=== PATIENT | male | born 1995 | race Two or more races ===

== ENCOUNTER 2016-07-16 15:51 | Emergency (ER) | payer OTHER ==
[~2016-07-16] VITALS: Ht 175.3 cm; Wt 73.5 kg
[2016-07-16 16:01] VITALS: BP 118/98
[2016-07-16] MEDS ORDERED: KETOROLAC TROMETH 60MG/2ML VIAL IM ONE (18:15)
== END 2016-07-16 18:52 | disposition home or self-care (01) ==
LOC: ER 16:04
DX: R51 Headache (principal); J45.909 Unspecified asthma, uncomplicated; Z90.89 Acquired absence of other organs; V49.59XA Passenger injured in collision with other motor vehicles in traffic accident, initial encounter; Y93.89 Activity, other specified; Y99.8 Other external cause status; Y92.488 Other paved roadways as the place of occurrence of the external cause
CPT/HCPCS: 96372; 99283; J1885

== ENCOUNTER 2017-04-21 02:24 | Emergency (ER) | payer OTHER ==
[~2017-04-21] VITALS: Ht 172.7 cm; Wt 72.6 kg
[2017-04-21] MEDS ORDERED: ONDANSETRON HCL 4 MG/2 ML VIAL IV ONE (03:45)
[2017-04-21] MEDS ORDERED: MORPHINE SULFATE 4 MG/ML SYR/VIAL IV ONE (03:45)
[2017-04-21] MEDS ORDERED: cefTRIAXone 1GM/10ml IVPUSH 10 ML IV ONE (03:45)
[2017-04-21] MEDS ORDERED: TETANUS-DIPTH-ACEL PERTUSSIS 0.5ML SYRG IM ONE (03:45)
[2017-04-21 05:59] VITALS: BP 119/67
== END 2017-04-21 06:27 | disposition home or self-care (01) ==
LOC: ER 02:24 → EDBD 02:24 → ER 06:27
DX: S02.2XXA Fracture of nasal bones, initial encounter for closed fracture (principal); J45.909 Unspecified asthma, uncomplicated; S16.1XXA Strain of muscle, fascia and tendon at neck level, initial encounter; S83.91XA Sprain of unspecified site of right knee, initial encounter; S93.401A Sprain of unspecified ligament of right ankle, initial encounter; V43.52XA Car driver injured in collision with other type car in traffic accident, initial encounter; Y93.89 Activity, other specified; Y92.89 Other specified places as the place of occurrence of the external cause; Y99.8 Other external cause status
CPT/HCPCS: 70450; 70486; 72125; 73560; 73610; 90471; 90715; 96374; 96375; 99284; J2270; J2405; J7030

== ENCOUNTER 2023-07-29 10:42 | Emergency (ER) | payer MEDICAID, OTHER ==
[~2023-07-29] VITALS: Ht 175.3 cm; Wt 70.6 kg
[2023-07-29] MEDS ORDERED: IBUP-1456 PO (12:34)
[2023-07-29] MEDS ORDERED: CLIN1CAP70 PO (12:34)
[2023-07-29 12:37] VITALS: BP 128/77; PULSE 69; RESP 18; TEMP 98.9; O2SAT 100
== END 2023-07-29 12:42 | disposition home or self-care (01) ==
LOC: ER 10:42
DX: K04.7 Periapical abscess without sinus (principal); J45.909 Unspecified asthma, uncomplicated; Z90.89 Acquired absence of other organs